=== PATIENT | female | born 1950 | race Caucasian/White ===

== ENCOUNTER 2018-02-20 09:04 | Day surgery (SDC) | payer MEDICARE, OTHER, SELFPAY ==
--- NOTE | 2018-02-20 | PATH_ITS ---
[facility] Accession Number: [id number] . 01 Material submitted: . GASTRIC POLYP . 02 Diagnosis: Stomach, Polyp, Biopsy: Fundic gland polyp. No evidence of Helicobacter on H/E stain. Negative for intestinal metaplasia. Negative for dysplasia and malignancy. [facility]/02/22/2018 . 02 Electronically signed: . Katerine Ramirez MD, Pathologist NPI- [id number] . 01 Gross description: . GASTRIC POLYP: Received in formalin is 1 fragment(s) of valles, soft tissue measuring 0.3 x 0.2 x 0.2 cm submitted entirely in 1 cassette(s) /TRC /TRC . 02 Pathologist provided ICD-10: R10.13 . 02 CPT . 646965 Performed at: 01 [facility] [address] [id number] MD Edilberto Fay MD Phone: [phone] [facility]formed at: [facility] [address] [place], [place] [id number] MD Rohan Washington MD Phone: [phone]
[2018-02-20 09:31] VITALS: BP 107/60; PULSE 71; RESP 15; TEMP 36.6; O2SAT 98; BMI 21.9
[2018-02-20] MEDS: SODIUM CHLORIDE 0.9% 1,000 ML 70 ML IV (09:44)
--- NOTE | 2018-02-20 09:51 | P.HP_ITS ---
History of Present Illness Chief complaint: [id number] Narrative: 67-year-old female with a longstanding history of halitosis and GERD like symptoms who is here for evaluation of GERD and also to rule out Crooks's esophagus. The patient is currently not taking any H2 emma or PPI. Please see office note from 01/08/2018 for further details Patient History Family & Social History Social History: household members significant other Meds Home Medications Medication Instructions Recorded Confirmed Type ascorbic acid-collagen [Collagen 02/20/18 History Plus Vitamin C] biotin 1,000 mcg PO DAILY 02/20/18 02/20/18 History calcium carb,cit-mag cit,ox-D3 02/20/18 History [Yemi-Mag Complex] estradiol 0.5 mg PO DAILY 02/20/18 02/20/18 History hyalur ac-chond sul-colg II-AA 02/20/18 History [Hyaluronic Acid (chond-collgn)] medroxyprogesterone 2.5 mg PO DAILY 02/20/18 02/20/18 History encyoaciggxe-qjdr-arwpq acid 1 tab PO DAILY 02/20/18 02/20/18 History [Multi Complete with Iron] Allergies Allergy/AdvReac Type Severity Reaction Status Date / Time No Known Drug Allergies Allergy Verified 02/20/18 09:23 Exam Vital Signs (past 8 hours): Vital Signs - 8 hr 3 02/20/18 09:31 Temperature 97.9 F Pulse Rate 71 Respiratory Rate 15 Blood Pressure 107/60 Pulse Oximetry 98 Pulse Oximetry 98 Oxygen Delivery Method Room Air Narrative Exam Narrative: General: Patient is well developed, not in apparent distress Cardiovascular: Regular rate and rhythm, no murmurs, rubs, or gallops; no evidence of edema; no palpable abdominal aortic aneurysm Gastrointestinal: Normoactive bowel sounds, soft, nontender, nondistended, no rebound tenderness, no hepatosplenomegaly, no evidence of hernia Assessment & Plan Plan: Assessment/Plan Narrative: 67-year-old female with history of GERD symptoms and halitosis who is here for EGD to rule out esophagitis, Crooks's esophagus, or upper GI tumor. Regarding the procedure(s), the risks and potential complications, benefits, and alternatives (including not doing the procedure) were discussed with the patient. The risks include but are not limited to bleeding, infection, perforation which may require surgical intervention, missed lesions, and adverse reactions to sedative medicines. After a question and answer period, the patient agreed to proceed with the procedure(s).
--- NOTE | 2018-02-20 10:08 | PM.OP.ENDO ---
Operative Date/Time/Diagnoses - Date of procedure: 02/20/18 Time of procedure: 09:50 Procedure Notes Procedure in detail: Surgeon: Elías Gallego MD Procedure: Colonoscopy with snare polypectomy Preoperative diagnosis: Colon cancer screening average risk Postoperative diagnosis: Ascending polyp status post polypectomy, grade 1 internal hemorrhoids Medications: Conscious sedation using 4 mg IV of Midazolam and 50 mcg IV of Fentanyl Preanesthesia Assessment An H and P was performed/updated and the Px?s ASA class is 2. The procedure was discussed in detail with the patient. The potential risks and complications including infection, bleeding, missed lesions, perforation, need for surgery in case of perforation, prolonged hospital stay, and were explained. A brief question and answer period was allotted and once all questions were answered, informed consent was obtained. The patient was brought back to the procedure room and placed on standard monitoring. The patient?s vital signs were monitored continuously throughout the entire procedure. Prior to starting, a timeout was performed to confirm the patient?s identity, allergies, medications, and procedure. Procedure in detail The patient was placed in left lateral decubitus position and once adequate sedation was obtained a MAJOR was performed. The digital rectal exam revealed no palpable lesions. The tip of the colonoscope was placed in the anal canal and advanced without difficulty all the way to the cecum which was identified by the appendiceal orifice and ileocecal valve. Careful examination of all jacobson of the colon was performed with irrigation of any residual stool. In the ascending colon there was a 12 mm sessile polyp which was seen. This was removed in its entirety by means of hot snare with no evidence of residual bleeding. Examination of the remainder of the colon revealed no further polyps. Retroflexion was performed in the rectum which revealed grade 1 internal hemorrhoids. The patient tolerated the procedure well and will be brought back to the recovery area to be discharged once criteria are met. The prep was judged to be good/excellent and adequate to identify polyps less than 5 mm. The withdrawal time was 9.5 min. The total procedure time from initial sedation was 18 min. Complications There were no complications and estimated blood loss was minimal. Recommendations: Resume previous diet Continue outPx medications Follow up pathology results Repeat colonoscopy in 3 years depending on health status Restart Coumadin today An emergency contact number was given to the patient for any complications related to the procedure
--- NOTE | 2018-02-20 10:13 | P.DS_ITS ---
History of Present Illness Chief complaint: [id number] Narrative: 67-year-old female with a longstanding history of halitosis and GERD like symptoms who is here for evaluation of GERD and also to rule out Crooks's esophagus. The patient is currently not taking any H2 emma or PPI. Please see office note from 01/08/2018 for further details Discharge Providers Primary care physician: Isaias Gutierrez MD Discharge provider: Elías Gallego MD Exam Vital Signs (past 8 hours): Vital Signs - 8 hr 3 02/20/18 09:31 Temperature 97.9 F Pulse Rate 71 Respiratory Rate 15 Blood Pressure 107/60 Pulse Oximetry 98 Pulse Oximetry 98 Oxygen Delivery Method Room Air Narrative Exam Narrative: General: Patient is well developed, not in apparent distress Cardiovascular: Irregularly irregular rate, bradycardic, no murmurs, rubs, or gallops; no evidence of edema; no palpable abdominal aortic aneurysm Gastrointestinal: Normoactive bowel sounds, soft, nontender, nondistended, no rebound tenderness, no hepatosplenomegaly, no evidence of hernia Discharge Plan Discharge Plan Patient Disposition: Home, Self-Care Discharge comment: Resume warfarin today Remove IV prior to discharge Discharge to home once criteria are met (positive flatus, stable vital signs, no abdominal pain, tolerating p.o.) Discharge Med Rec/Prescriptions Prescriptions: Continue medroxyprogesterone 2.5 mg Tablet 2.5 mg PO DAILY RF: 0 estradiol 0.5 mg Tablet 0.5 mg PO DAILY RF: 0 ascorbic acid-collagen [Collagen Plus Vitamin C] 125-740 mg Capsule RF: 0 leztjaepgmlg-atze-spiam acid [Multi Complete with Iron] 18-400 mg-mcg Tablet 1 tab PO DAILY RF: 0 hyalur ac-chond sul-colg II-AA [Hyaluronic Acid (chond-collgn)] 40-80-400 mg Capsule RF: 0 biotin 1,000 mcg Tablet,Chewable 1,000 mcg PO DAILY RF: 0 calcium carb,cit-mag cit,ox-D3 [Yemi-Mag Complex] 300 mg-150 mg- 400 unit Tablet RF: 0 Discharge Orders: Discharge (Order); Ordered 02/20/18 Ordered By: Elías Gallego Provider Discharge Instructions Diet: Diet as Tolerated Visit Report/Discharge Packet Stand Alone Forms: Surgery Discharge Discharge Data Primary Care Provider: Isaias Gutierrez Attending Provider: Elías Gallego
[2018-02-20] MEDS: TETRACAINE/BENZOCAINE/BUTAMBEN (CETACAINE) BOTTLE 1 SPRAY TOP (10:32)
[2018-02-20 10:40] VITALS: BP 104/66; PULSE 69; RESP 16; TEMP 36.5; O2SAT 96
[2018-02-20] MEDS: fentaNYL 250 MCG/5 ML INJ IV (10:40)
[2018-02-20] MEDS: MIDAZOLAM 5 MG/5 ML VIAL IV (10:40)
--- NOTE | 2018-02-20 10:41 | P.OP.ENDO_ITS ---
Operative Date/Time/Diagnoses - Date of procedure: 02/20/18 Time of procedure: 10:40 Procedure Notes Procedure in detail: Surgeon: Elías Gallego MD Procedure: Esophagogastroduodenoscopy with biopsy Preoperative diagnosis: GERD Postoperative diagnosis: Gastric polyp status post biopsy, hiatal hernia Medications: Conscious sedation using 5 mg IV of Midazolam and 50 mcg IV of Fentanyl Preanesthesia Assessment An H and P was performed/updated and the Px?s ASA class is 1. The procedure was discussed in detail with the patient. The potential risks and complications including infection, bleeding, missed lesions, perforation, need for surgery in case of perforation, prolonged hospital stay, and were explained. A brief question and answer period was allotted and once all questions were answered, informed consent was obtained. The patient was brought back to the procedure room and placed on standard monitoring. The patient?s vital signs were monitored continuously throughout the entire procedure. Prior to starting, a timeout was performed to confirm the patient?s identity, allergies, medications, and procedure. Procedure in detail The patient was placed in left lateral decubitus position and a bite block was inserted. The tip of the upper endoscope was placed in the mouth and advanced under direct visualization without any difficulty into the esophageal lumen. The esophagus was examined in detail and showed no mucosal abnormalities. The Z -line appeared normal. The tip of the endoscope was then advanced to the 2nd portion of the duodenum without difficulty. The visualized duodenal mucosa revealed no abnormalities. The endoscope was then withdrawn back into the stomach and careful examination of all jacobson was performed. In the body of the stomach there is note of multiple 3-5 mm sessile and semi pedunculated polyps. A employment program representative biopsy was taken from the largest polyp. Retroflexion was performed in the stomach and revealed a small hiatal hernia. The stomach was decompressed and the endoscope was withdrawn back into the esophagus and further examination revealed no evidence of abnormality such as esophageal tumor or Crooks's esophagus. The procedure was then terminated The patient tolerated the procedure well and will be brought back to the recovery area to be discharged once criteria are met. The total procedure time from initial sedation was 10 min. Complications There were no complications and estimated blood loss was minimal. Recommendations: Resume previous diet Anti-reflux measures at all times Continue outPx medications Follow up pathology results Office follow up with Imelda Mirza if with any recurrent severe symptoms An emergency contact number was given to the patient for any complications related to the procedure
[2018-02-20 10:45] VITALS: BP 99/67; PULSE 69; RESP 16; O2SAT 92
--- NOTE | 2018-02-20 10:48 | P.DS_ITS ---
History of Present Illness Chief complaint: [id number] Narrative: 67-year-old female with a longstanding history of halitosis and GERD like symptoms who is here for evaluation of GERD and also to rule out Crooks's esophagus. The patient is currently not taking any H2 emma or PPI. Please see office note from 01/08/2018 for further details Discharge Providers Primary care physician: Isaias Gutierrez MD Discharge provider: Elías Gallego MD Exam Vital Signs (past 8 hours): Vital Signs - 8 hr 3 02/20/18 09:31 Temperature 97.9 F Pulse Rate 71 Respiratory Rate 15 Blood Pressure 107/60 Pulse Oximetry 98 Pulse Oximetry 98 Oxygen Delivery Method Room Air Narrative Exam Narrative: General: Patient is well developed, not in apparent distress Cardiovascular: Regular rate and rhythm, no murmurs, rubs, or gallops; no evidence of edema; no palpable abdominal aortic aneurysm Gastrointestinal: Normoactive bowel sounds, soft, nontender, nondistended, no rebound tenderness, no hepatosplenomegaly, no evidence of hernia Discharge Plan Discharge Plan Patient Disposition: Home, Self-Care Discharge comment: Call to schedule follow-up at our office if with any recurrence severe symptoms Remove IV prior to discharge Discharge to home once criteria are met (positive flatus, stable vital signs, no abdominal pain, tolerating p.o.) Discharge Med Rec/Prescriptions Prescriptions: Continue medroxyprogesterone 2.5 mg Tablet 2.5 mg PO DAILY RF: 0 estradiol 0.5 mg Tablet 0.5 mg PO DAILY RF: 0 ascorbic acid-collagen [Collagen Plus Vitamin C] 125-740 mg Capsule RF: 0 gyqcearejned-phbo-dutkg acid [Multi Complete with Iron] 18-400 mg-mcg Tablet 1 tab PO DAILY RF: 0 hyalur ac-chond sul-colg II-AA [Hyaluronic Acid (chond-collgn)] 40-80-400 mg Capsule RF: 0 biotin 1,000 mcg Tablet,Chewable 1,000 mcg PO DAILY RF: 0 calcium carb,cit-mag cit,ox-D3 [Yemi-Mag Complex] 300 mg-150 mg- 400 unit Tablet RF: 0 Discharge Orders: Discharge (Order); Ordered 02/20/18 Ordered By: Elías Gallego Provider Discharge Instructions Diet: Diet as Tolerated Visit Report/Discharge Packet Stand Alone Forms: Surgery Discharge Discharge Data Primary Care Provider: Isaias Gutierrez Attending Provider: Elías Gallego
[2018-02-20 10:50] VITALS: BP 100/63; PULSE 65; RESP 16; O2SAT 94
[2018-02-20 11:00] VITALS: BP 101/71; PULSE 70; RESP 16; TEMP 36.7; O2SAT 96
[2018-02-20 11:15] VITALS: BP 116/68; PULSE 69; RESP 16; TEMP 36.8; O2SAT 97
== END 2018-02-20 11:19 | disposition home or self-care (01) ==
PROVIDERS: PCP Family Medicine; Visit Provider Internal Medicine Gastroenterology
PROC: 0DJ08ZZ Inspection of Upper Intestinal Tract, Via Natural or Artificial Opening Endoscopic (ICD-10-PCS; CPT 43235; principal; 2018-02-20 10:30)
DX: K21.9 Gastro-esophageal reflux disease without esophagitis (principal); K44.9 Diaphragmatic hernia without obstruction or gangrene; R19.6 Halitosis; K31.7 Polyp of stomach and duodenum
CPT/HCPCS: 43239; J2250; J3010